=== PATIENT | male | born 1945 | race Asian ===

== ENCOUNTER 2024-05-28 18:03 | Emergency (ER) | payer OTHER, SELFPAY ==
[2024-05-28 18:06] VITALS: BP 139/58
[2024-05-28 18:44] VITALS: BP 133/62; BMI 19.9
[2024-05-28 19:00] VITALS: BP 120/58
--- NOTE | 2024-05-28 19:22 | ED.GENMED ---
History of Present Illness
General
Chief Complaint: Fall
Time Seen by Provider: 05/28/24 18:28
History of Present Illness
History of Present Illness:
78-year-old male with history of A-fib, sick sinus syndrome status post pacemaker, and chronic heart failure presents to the emergency department for evaluation after a fall. He is accompanied by his son. Son states that he tripped and fell
forward striking the right side of his face on the ground as well as his knees on the ground. At this time the patient reports facial and neck pain as well as right knee pain. He is on warfarin. Did not take his warfarin dose today. No reported
LOC. Denies any chest pain or shortness of breath. Denies any obvious syncope
Past History
Past History
ED Past Medical History: Arrthythmia (afib) and Other (Aortic valve replacement 1999, pacemaker 2009)
ED Past Surgical History: Cardiac (pacer, AV replacement 2009), Cholecystectomy and Urological
Social History
Tobacco: Former smoker
Alcohol: None
Drug: None
Personal:
Living: with family
Employment: Not employed
Family History
Family History: Other (Noncontributory)
Review of Systems
Review of Systems
Allergies reviewed?: Yes
All Other Systems: ROS reviewed and negative except as documented in HPI and ROS
Phy Exam
Physical Exam
Physical Exam:
GEN: Well appearing, NAD, WDWN
HEENT: No cephalohematoma. No obvious maxillofacial swelling. Minor ecchymosis to the right upper lip with no laceration. Oral mucosa moist, no scleral icterus, no midline cervical spine tenderness, positive left paraspinous muscle tenderness
Cardiac: Regular rate and rhythm
Lung: No respiratory distress, no tachypnea, lungs clear to auscultation bilaterally
MSK: No gross deformity or injuries. No midline cervical, thoracic, or lumbar spine tenderness. No pelvic tenderness or crepitus. Minor ecchymosis to the right medial knee with no gross deformity, normal range of motion appreciated.
Skin: Good color, no pallor or jaundice, no rashes
Neuro: AO x3, moves all extremities freely
Psych: Calm, cooperative
Course
Orders/Labs/Results
Orders:
Orders
05/28/24 18:42
CT Cervical Spine W/o Iv Contr Urgent
Comment:
Reason For Exam: fall
CT Head W/o Iv Contrast Urgent
Comment:
Reason For Exam: fall
CR Knee- Right 4 Or More View* Urgent
Comment:
Reason For Exam: fall
Vital Signs
Initial and Last Documented VS:
Initial Vital Signs
Temp Pulse Resp BP Pulse Ox
98.0 F 60 18 139/58 96
05/28/24 18:06 05/28/24 18:06 05/28/24 18:06 05/28/24 18:06 05/28/24 18:06
Last Documented Vital Signs
Temp Pulse Resp BP Pulse Ox
98.0 F 60 18 122/65 96
05/28/24 18:06 05/28/24 18:06 05/28/24 18:06 05/28/24 20:00 05/28/24 20:00
MDM/Problems Addressed
MDM/Problems Addressed:
CT of the head and cervical spine are reassuring. X-ray of the right knee shows no acute traumatic findings. Per prior documentation the patient's pacemaker is a [employer] however we attempted [employer] interrogation and this was unsuccessful,
nursing staff contacted the local device rep and informed them that they do not have the patient on file. Ultimately this sounds more like a mechanical fall and a syncopal event thus interrogation is not immediately prudent. Discharged in stable
condition.
*Critical Care Note
Total Time (30-74mins, 75-104mins- exclusive of procedures): Not Applicable
ED Attending Note
-
Portions of this chart may have been created with voice recognition software.� Occasional wrong word or��sound alike� substitutions may have occurred due to the inherent limitations of voice recognition software.
Discharge Plan
Departure
Patient Disposition: Home (Routine Discharge)
Date of Disposition: 05/28/24
Time of Disposition: 20:52
Patient with high blood pressure during this ER visit?: No
Discharge Problem:
Ground-level fall, Contusion of right knee
Instructions: Preventing falls in adults
Prescriptions:
No Action
warfarin [Jantoven] 2 MG tablet
2.5 mg PO TUTHSA
Patient Comments:
every other day. sun,tues,thurs,sat
warfarin [Jantoven] 2 MG tablet
2 mg PO .MON,MON,MON,SUN
Patient Comments:
alternates with 2.5mg dose. mon,mon,mon
atenolol 25 MG tablet
25 mg PO DAILY
alprazolam 0.5 MG tablet
0.5 mg PO QPM
Patient Comments:
once every 2 days
tamsulosin 0.4 MG capsule
0.4 mg PO DAILY
acetaminophen 325 MG tablet
650 mg PO Q4HPRN PRN (Reason: mild pain) Qty: 1 0RF
polyethylene glycol 3350 17 GRAMS powder in packet
17 grams PO DAILY 0RF
Referrals:
Gabino Casey MD [Family Provider] -
Interventions
Interventions:
*Risk Screen - Suicide Last Done: 05/28/24 18:46
*General Assessment Last Done: 05/28/24 18:46
*Neglect/Abuse Screening Last Done: 05/28/24 18:46
*ED- Fall Risk Assessment Last Done: 05/28/24 18:46
*ED COVID-19 Vaccine History Last Done: 05/28/24 18:11
*Nursing Disposition Last Done: 05/28/24 20:58
ED-Musculoskeletal Assessment Last Done: 05/28/24 18:46
ED- Neurological Assessment Last Done: 05/28/24 18:46
ED-Skin Assessment Last Done: 05/28/24 18:46
Discharge Date and Time
Discharge Date/Time: 05/28/24 21:05
Print Language: MALTESE
[2024-05-28 20:00] VITALS: BP 122/65
== END 2024-05-28 21:05 | disposition home or self-care (01) ==
LOC: EMR 18:03
PROVIDERS: EMERGENCY PHYSICIAN Emergency Medicine; FAMILY PHYSICIAN Internal Medicine
DX: S80.01XA Contusion of right knee, initial encounter (principal); W01.0XXA Fall on same level from slipping, tripping and stumbling without subsequent striking against object, initial encounter; Z87.891 Personal history of nicotine dependence; I48.91 Unspecified atrial fibrillation; Z95.0 Presence of cardiac pacemaker
CPT/HCPCS: 99285; 70450; 72125; 73564